=== PATIENT | female | born 1975 | race Two or more races ===

== ENCOUNTER 2022-11-13 15:28 | Emergency (ER) | payer OTHER ==
[~2022-11-13] VITALS: Ht 147.3 cm; Wt 98.9 kg
== END 2022-11-13 19:14 | disposition home or self-care (01) ==
LOC: ER 15:28
DX: J40 Bronchitis, not specified as acute or chronic (principal); J98.01 Acute bronchospasm; E11.9 Type 2 diabetes mellitus without complications; I10 Essential (primary) hypertension; Z20.822 Contact with and (suspected) exposure to COVID-19

== ENCOUNTER 2023-05-03 13:16 | Emergency (ER) | payer OTHER ==
[~2023-05-03] VITALS: Ht 147.3 cm; Wt 94.3 kg
[2023-05-03] MEDS ORDERED: XOPENEX HFA15 GM (13:35)
[2023-05-03] MEDS ORDERED: RAYOS5 MG (13:35)
[2023-05-03] MEDS ORDERED: TUSSIN15 MG/5 M1 (13:36)
[2023-05-03] MEDS ORDERED: METFORMIN HCL500 M3 (13:36)
[2023-05-03] MEDS ORDERED: COZAAR50 MG (13:37)
== END 2023-05-03 14:58 | disposition home or self-care (01) ==
LOC: ER 13:16
DX: J06.9 Acute upper respiratory infection, unspecified (principal)
CPT/HCPCS: 96372; 99284; J0696

== ENCOUNTER 2023-05-07 13:44 | Emergency (ER) | payer OTHER ==
[~2023-05-07] VITALS: Ht 147.3 cm; Wt 94.8 kg
[~2023-05-07 13:44] MED LIST: COZAAR50 MG; METFORMIN HCL500 M3; RAYOS5 MG; TUSSIN15 MG/5 M1; XOPENEX HFA15 GM
[2023-05-07 16:11] LABS: HEMATOCRIT 42.8 % (36.0-45.00); MEAN CELL VOLUME 86.2 fL (80.00-100.00); MEAN CORPUSCULAR HEMOGLOBIN 28.3 pg (27.00-32.0); MEAN CORPUSCULAR HGB CONC 32.8 g/dl (32.0-36.0); PLATELET COUNT 333 K/uL (150-450); RED BLOOD COUNT 4.97 M/uL (4.00-6.00); RED CELL DISTRIBUTION WIDTH 13.5 % (11.5-14.5)
[2023-05-07 16:36] LABS: CALCIUM 9.3 mg/dL (8.5-10.1); CREATININE SERUM 1.14 mg/dL (0.55-1.02); GFR 50.66; POTASSIUM 3.78 mEq/L (3.5-5.1)
[2023-05-07 16:44] LABS: ABG PH 7.412 (7.35-7.45); ABG PO2 77.3 mmHg (80-100); ABG pCO2 41.1 mmHg (35-45)
[2023-05-07 16:45] LABS: BASE EXCESS 0.9 mmol/l; BICARBONATE 25.5 mmol/l (23-25); SaO2 95.5 %; Tco2 26.8 mmol/l; allen test SATISFACTORY; o2 21 %; puncture site RADIAL LEFT
== END 2023-05-07 19:09 | disposition home or self-care (01) ==
LOC: ER 13:44
PROVIDERS: General Practice
DX: J45.901 Unspecified asthma with (acute) exacerbation (principal); Z20.822 Contact with and (suspected) exposure to COVID-19
CPT/HCPCS: 36415; 71046; 96365; 99283; J2930

== ENCOUNTER 2025-05-26 15:06 | Emergency (ER) | payer OTHER ==
[~2025-05-26] VITALS: Ht 147.3 cm; Wt 94.8 kg
[2025-05-26 16:45] VITALS: BP 112/70; O2SAT 100
[2025-05-26] MEDS ORDERED: IBUPROFEN600 MG PO (17:47)
[2025-05-26] MEDS ORDERED: DOXYCYCLINE HY100 MG PO (17:47)
[2025-05-26] MEDS ORDERED: CEFTRIAXONE SODIUM 1,000 MG VIAL IM ONE (18:00)
[2025-05-26] MEDS ORDERED: KETOROLAC TROMETHAMINE 30 MG VIAL IM ONE (18:00)
[2025-05-26] MEDS ORDERED: CEFTRIAXONE SODIUM 1,000 MG VIAL ONE (19:09)
[2025-05-26] MEDS ORDERED: KETOROLAC TROMETHAMINE 30 MG VIAL ONE (19:09)
== END 2025-05-26 21:47 | disposition home or self-care (01) ==
LOC: ER 15:06
DX: L03.032 Cellulitis of left toe (principal); E11.9 Type 2 diabetes mellitus without complications; Z79.84 Long term (current) use of oral hypoglycemic drugs

== ENCOUNTER 2025-06-04 22:54 | Inpatient (IN) | payer OTHER ==
[~2025-06-04] VITALS: Ht 147.3 cm; Wt 92.1 kg
[~2025-06-04 22:54] MED LIST changes: +DOXYCYCLINE HY100 MG PO; +IBUPROFEN600 MG PO
[2025-06-05] MEDS ORDERED: CEFTRIAXONE SODIUM 1,000 MG VIAL IV STA (00:09)
[2025-06-05] MEDS ORDERED: KETOROLAC TROMETHAMINE 30 MG VIAL IV STA (00:10)
[2025-06-05] MEDS ORDERED: CEFTRIAXONE SODIUM 1,000 MG VIAL ONE (00:48)
[2025-06-05] MEDS ORDERED: KETOROLAC TROMETHAMINE 30 MG VIAL ONE (00:48)
[2025-06-05] MEDS ORDERED: LIDOCAINE HCL 1% 10ML VIAL ONE (00:49)
[2025-06-05 01:20] LABS: BASO % 0.3 % (0.1-1.2); EOS # 0.06 (0.04-0.54); EOS % 0.4 % (0.7-7.0); LYMPH # 3.35 (1.18-3.74); LYMPH % 23.2 % (19.3-53.1); MEAN PLATELET VOLUME 9.00 fl (9.4-12.4); MONO # 0.63 (0.24-0.82); MONO % 4.4 % (4.7-12.5); NEUT # 10.32 (1.56-6.13); NEUT % 71.3 % (34.0-71.1); RED CELL DISTRIBUTION WIDTH 14.3 % (11.6-14.4)
[2025-06-05 01:41] LABS: BUN CREA RATIO 23.0 (7.0-25.0); CREATININE SERUM 1.07 mg/dL (0.55-1.02); GFR 54.06; GLUCOSE FASTING 155.0 mg/dL (65-100); OSMOLALITY SERUM 291.0 MOSM/KG (275-295)
[2025-06-05] MEDS ORDERED: MORPHINE SULFATE 4 MG/ML VIAL IV STA (02:29)
[2025-06-05] MEDS ORDERED: MORPHINE SULFATE 4 MG/ML VIAL IV PRN (10:15)
[2025-06-05] MEDS ORDERED: MetFORMIN HCL 1000 MG TABLET PO SCH (11:16)
[2025-06-05] MEDS ORDERED: PIPERACILLIN/TAZOBACTAM SODIUM 3.375 GM VIAL IV ONE (11:25)
[2025-06-05 11:47] VITALS: BP 123/73
[2025-06-05] MEDS ORDERED: PIPERACILLIN/TAZOBACTAM SODIUM 3.375 GM VIAL IV SCH (12:00)
[2025-06-05] MEDS ORDERED: SODIUM HYPOCHLORITE 1OZ TOP SCH (12:45)
[2025-06-05 18:54] LABS: BASO % 0.2 % (0.1-1.2); EOS # 0.05 (0.04-0.54); EOS % 0.4 % (0.7-7.0); LYMPH # 2.86 (1.18-3.74); LYMPH % 20.8 % (19.3-53.1); MEAN PLATELET VOLUME 9.30 fl (9.4-12.4); MONO # 0.40 (0.24-0.82); MONO % 2.9 % (4.7-12.5); NEUT # 10.39 (1.56-6.13); NEUT % 75.3 % (34.0-71.1); RED CELL DISTRIBUTION WIDTH 14.6 % (11.6-14.4)
[2025-06-05 18:58] LABS: ERYTHROCYTE SEDIMENTATION RATE 97 mm/hr (0-30)
[2025-06-05 19:15] LABS: ALT/SGPT 60.0 U/L (12-78); AST/SGOT 21.0 U/L (15-37); BILIRUBIN TOTAL 0.5 mg/dL (0.3-1.2); BUN CREA RATIO 19.0 (7.0-25.0); CREATININE SERUM 1.36 mg/dL (0.55-1.02); GFR 40.99; GLOBULINA 4.2 G/DL (2.4-3.5); GLUCOSE FASTING 150.0 mg/dL (65-100); OSMOLALITY SERUM 289.0 MOSM/KG (275-295)
[2025-06-06] VITALS: BP 113/70; O2SAT 97
[2025-06-06 09:13] VITALS: BP 102/72; O2SAT 96
[2025-06-06 18:18] VITALS: BP 140/85; O2SAT 97
[2025-06-07 02:50] VITALS: BP 133/75; O2SAT 98
[2025-06-07] MEDS ORDERED: LOSARTAN POTASSIUM 50 MG TABLET PO SCH (09:00)
[2025-06-07 09:01] VITALS: BP 109/69; O2SAT 98
[2025-06-07 18:57] VITALS: BP 135/85; O2SAT 98
[2025-06-08] MEDS ORDERED: MORPHINE SULFATE 4 MG/ML VIAL IV PRN (00:45)
[2025-06-08 01:25] VITALS: BP 106/64; O2SAT 98
[2025-06-08 08:57] VITALS: BP 125/70; O2SAT 99
[2025-06-08] MEDS ORDERED: KETOROLAC TROMETHAMINE 30 MG VIAL IV PRN (11:30)
[2025-06-08 22:34] VITALS: BP 101/81
[2025-06-09 02:13] VITALS: BP 123/71; O2SAT 97
[2025-06-09 06:14] LABS: BASO % 0.4 % (0.1-1.2); EOS # 0.45 (0.04-0.54); EOS % 4.0 % (0.7-7.0); LYMPH # 3.25 (1.18-3.74); LYMPH % 29.0 % (19.3-53.1); MEAN PLATELET VOLUME 9.30 fl (9.4-12.4); MONO # 0.53 (0.24-0.82); MONO % 4.7 % (4.7-12.5); NEUT # 6.87 (1.56-6.13); NEUT % 61.5 % (34.0-71.1); RED CELL DISTRIBUTION WIDTH 14.4 % (11.6-14.4)
[2025-06-09 07:04] LABS: ALT/SGPT 47.0 U/L (12-78); AST/SGOT 17.0 U/L (15-37); BILIRUBIN TOTAL 0.36 mg/dL (0.3-1.2); BUN CREA RATIO 22.0 (7.0-25.0); CREATININE SERUM 1.23 mg/dL (0.55-1.02); GFR 46.03; GLOBULINA 3.9 G/DL (2.4-3.5); GLUCOSE FASTING 139.0 mg/dL (65-100); OSMOLALITY SERUM 289.0 MOSM/KG (275-295)
[2025-06-09] MEDS ORDERED: DEXTROSE 50 % IN WATER 0.5 G/ML DISP.SYRIN IV PRN (08:15)
[2025-06-09] MEDS ORDERED: INSULIN LISPRO 1,000 UNIT/10 ML UNITS SUBCUTANEO PRN (08:15)
[2025-06-09 08:41] VITALS: BP 119/69; O2SAT 97
[2025-06-09] MEDS ORDERED: POVIDONE-IODINE 118 ML BOTT TOP ONE (12:27)
[2025-06-09] MEDS ORDERED: PIPERACILLIN/TAZOBACTAM SODIUM 3.375 GM VIAL IV ONE (12:41)
[2025-06-09] MEDS ORDERED: HYDROGEN PEROXIDE 473 ML BOTTLE TOP ONE (13:25)
[2025-06-09 20:24] VITALS: BP 121/72
[2025-06-10 01:17] VITALS: BP 103/61; O2SAT 95
[2025-06-10 07:09] LABS: BUN CREA RATIO 20.0 (7.0-25.0); CREATININE SERUM 1.34 mg/dL (0.55-1.02); GFR 41.7; GLUCOSE FASTING 163.0 mg/dL (65-100); OSMOLALITY SERUM 294.0 MOSM/KG (275-295); TSH 1.47 uIU/mL (0.358-3.74)
[2025-06-10 11:20] VITALS: BP 109/62; O2SAT 99
[2025-06-10] MEDS ORDERED: KETOROLAC TROMETHAMINE 30 MG VIAL IV SCH (17:00)
[2025-06-10] MEDS ORDERED: TRAMADOL HCL 50 MG TABLET PO SCH (17:00)
[2025-06-10 19:50] VITALS: BP 132/63
[2025-06-10 19:52] VITALS: BP 132/63
[2025-06-11 03:06] VITALS: BP 140/81; O2SAT 96
[2025-06-11 09:06] VITALS: BP 142/77; O2SAT 99
[2025-06-11 19:11] VITALS: BP 132/81; O2SAT 97
[2025-06-12 03:35] VITALS: BP 107/68; O2SAT 97
[2025-06-12 08:35] LABS: BASO % 0.4 % (0.1-1.2); EOS # 0.36 (0.04-0.54); EOS % 3.4 % (0.7-7.0); LYMPH # 2.71 (1.18-3.74); LYMPH % 25.4 % (19.3-53.1); MEAN PLATELET VOLUME 9.20 fl (9.4-12.4); MONO # 0.40 (0.24-0.82); MONO % 3.7 % (4.7-12.5); NEUT # 7.12 (1.56-6.13); NEUT % 66.5 % (34.0-71.1); RED CELL DISTRIBUTION WIDTH 14.6 % (11.6-14.4)
[2025-06-12 08:53] LABS: BUN CREA RATIO 27.0 (7.0-25.0); CREATININE SERUM 1.03 mg/dL (0.55-1.02); GFR 56.49; GLUCOSE FASTING 106.0 mg/dL (65-100); OSMOLALITY SERUM 291.0 MOSM/KG (275-295)
[2025-06-12 09:14] VITALS: BP 148/83; O2SAT 98
[2025-06-12] MEDS ORDERED: PIPERACILLIN/TAZOBACTAM SODIUM 3.375 GM VIAL IV SCH (18:00)
[2025-06-12 18:46] VITALS: BP 160/85; O2SAT 97
[2025-06-13 03:08] VITALS: BP 136/77; O2SAT 98
[2025-06-13] MEDS ORDERED: TRAMADOL HCL 50 MG TABLET PO PRN (06:30)
[2025-06-13 08:54] VITALS: BP 139/78; O2SAT 98
[2025-06-13] MEDS ORDERED: TRAMADOL HCL 50 MG TABLET PO STA (09:59)
[2025-06-13] MEDS ORDERED: KETOROLAC TROMETHAMINE 30 MG VIAL IM ONE (11:00)
[2025-06-13] MEDS ORDERED: TRAMADOL HCL 50 MG TABLET PO SCH ×2 (17:00)
[2025-06-13 18:53] VITALS: BP 120/74
[2025-06-14 03:28] VITALS: BP 119/74; O2SAT 96
[2025-06-14 08:00] VITALS: BP 118/78; O2SAT 98
[2025-06-14 19:14] VITALS: BP 95/60
[2025-06-15 01:56] VITALS: BP 142/78; O2SAT 97
[2025-06-15 08:31] VITALS: BP 132/76; O2SAT 97
[2025-06-15 18:47] VITALS: BP 150/85; O2SAT 98
== END 2025-06-15 19:25 | disposition home or self-care (01) | DRG 639 ==
LOC: ER 22:55 → MEDI 06-05 10:11
PROVIDERS: General Practice; Internal Medicine; Internal Medicine Endocrinology, Diabetes & Metabolism; Internal Medicine Infectious Disease; ADMIT Internal Medicine; ATTEND Internal Medicine
PROC: 0HBRXZZ Excision of Toe Nail, External Approach (ICD-10-PCS; principal; 2025-06-05)
PROC: BQ3MZZZ Magnetic Resonance Imaging (MRI) of Left Foot (ICD-10-PCS; 2025-06-06)
PROC: 0H9NXZZ Drainage of Left Foot Skin, External Approach (ICD-10-PCS; 2025-06-09)
DX: E11.628 Type 2 diabetes mellitus with other skin complications (principal); L03.032 Cellulitis of left toe; L60.0 Ingrowing nail; N17.9 Acute kidney failure, unspecified; E11.42 Type 2 diabetes mellitus with diabetic polyneuropathy; M79.7 Fibromyalgia; N18.9 Chronic kidney disease, unspecified; Z79.84 Long term (current) use of oral hypoglycemic drugs

== ENCOUNTER 2025-06-22 05:55 | Emergency (ER) | payer OTHER ==
[~2025-06-22] VITALS: Ht 147.3 cm; Wt 94.8 kg
[2025-06-22 06:22] VITALS: BP 127/86; O2SAT 99
[2025-06-22] MEDS ORDERED: CLINDAMYCIN PHOSPHATE 150 MG/ML (600mg) IM ONE (07:30)
[2025-06-22 08:48] LABS: BASO % 0.4 % (0.1-1.2); EOS # 0.23 (0.04-0.54); EOS % 1.8 % (0.7-7.0); LYMPH # 3.20 (1.18-3.74); LYMPH % 25.2 % (19.3-53.1); MEAN PLATELET VOLUME 9.40 fl (9.4-12.4); MONO # 0.51 (0.24-0.82); MONO % 4.0 % (4.7-12.5); NEUT # 8.66 (1.56-6.13); NEUT % 68.2 % (34.0-71.1); RED CELL DISTRIBUTION WIDTH 14.6 % (11.6-14.4)
[2025-06-22 08:55] LABS: ERYTHROCYTE SEDIMENTATION RATE 78 mm/hr (0-30)
[2025-06-22 09:44] LABS: BUN CREA RATIO 24.0 (7.0-25.0); CREATININE SERUM 1.17 mg/dL (0.55-1.02); GFR 48.77; GLUCOSE FASTING 167.0 mg/dL (65-100); OSMOLALITY SERUM 292.0 MOSM/KG (275-295)
[2025-06-22] MEDS ORDERED: PEPCID AC20 MG PO (10:15)
[2025-06-22] MEDS ORDERED: AMOX-CLAV 875-1 EACH PO (10:15)
== END 2025-06-22 11:19 | disposition home or self-care (01) ==
LOC: ER 05:56
PROVIDERS: Student in an Organized Health Care Education/Training Program
DX: L03.032 Cellulitis of left toe (principal); L60.0 Ingrowing nail; E11.9 Type 2 diabetes mellitus without complications; Z79.84 Long term (current) use of oral hypoglycemic drugs; I10 Essential (primary) hypertension; G62.9 Polyneuropathy, unspecified; M79.7 Fibromyalgia
CPT/HCPCS: 10060; 73630; 96372; 99283; J3490